=== PATIENT | female | born 1990 | race Caucasian/White ===

== ENCOUNTER 2018-06-21 08:17 | Outpatient (CLI) | payer OTHER ==
--- NOTE | 2018-06-21 11:41 | MRI ---
BRAIN MRI WITHOUT CONTRAST: Date: 06/21/18 HISTORY: Ocular migraine. TECHNIQUE: Multiplanar, multisequence MR imaging of the brain is obtained without contrast. FINDINGS: Incidental note is made of mild benign tonsillar ectopia. The diffusion-weighted imaging demonstrates no evidence for acute infarction. Axial gradient echo imaging demonstrates no evidence for intracran ial hemorrhage. There is no midline shift, mass effect, or ventricular enlargement. Arterial flow-voids at axial leve l of skull base demonstrate patency. Imaged paranasal sinuses/mastoid air cells appear grossly unrema rkable. Regional bone marrow signal intensity appears within normal limits. IMPRESSION: No acute findings. POS: [facility]
== END 2018-06-21 08:18 | disposition home or self-care (01) ==
LOC: MRI 08:17
PROVIDERS: ATTEND Internal Medicine
DX: G43.B0 Ophthalmoplegic migraine, not intractable (principal)
CPT/HCPCS: 70551